=== PATIENT | male | born 1960 | race Caucasian/White ===

== ENCOUNTER 2020-11-26 11:28 | Emergency (ER) | payer OTHER, MEDICARE ==
[~2020-11-26] VITALS: Ht 182.9 cm; Wt 75.0 kg
[~2020-11-26 11:28] MED LIST: ONDA8TAB9 PO
[2020-11-26 12:08] LABS: BASOPHILS % (AUTO) 0.5 % (0-1); EOSINOPHILS % (AUTO) 0.3 % (0-6); MONOCYTES # (AUTO) 0.1 X10'3 (0-0.9)
[2020-11-26 12:10] LABS: LYMPHOCYTES % (AUTO) 89.5 % (21-51); MEAN CORPUSCULAR HEMOGLOBIN 29.8 PG (27.0-31.0); MEAN CORPUSCULAR HGB CONC 34.4 g/dL (33.0-36.5); MEAN CORPUSCULAR VOLUME 86.8 FL (78-98); MEAN PLATELET VOLUME 7.6 FL (7.4-10.4); MONOCYTES % (AUTO) 1.4 % (2-12); NEUTROPHILS # (AUTO) 0.7 X10'3 (1.8-7.7); NEUTROPHILS % (AUTO) 8.3 % (42-75); RED BLOOD COUNT 2.32 X10'6 (4.70-6.10); RED CELL DISTRIBUTION WIDTH 13.5 % (11.5-14.5); WHITE BLOOD COUNT 8.9 X10'3 (4.5-11.0)
[2020-11-26 12:30] LABS: ALANINE AMINOTRANSFERASE 24 U/L (12-78); ALBUMIN 3.6 G/DL (3.4-5.0); ALBUMIN/GLOBULIN RATIO 1.1 (1.1-1.5); ALKALINE PHOSPHATASE 159 IU/L (46-116); ANION GAP 10 (8-16); ASPARTATE AMINO TRANSFERASE 21 U/L (10-37); BILIRUBIN,TOTAL 0.3 MG/DL (0.1-1.0); BLOOD UREA NITROGEN 9 MG/DL (7-18); BUN/CREATININE RATIO 10.2 (5.4-32.0); CALCIUM 8.1 MG/DL (8.5-10.1); CHLORIDE 108 MMOL/L (99-107); CREATININE 0.88 MG/DL (0.60-1.10); GLUCOSE 131 MG/DL (70-104); POTASSIUM 4.7 MMOL/L (3.5-5.1); SODIUM 144 MMOL/L (135-145); TOTAL PROTEIN 6.8 G/DL (6.4-8.2); eGFR 88 ML/MIN
[2020-11-26 12:33] LABS: HEMATOCRIT 20.1 % (42.0-52.0); HEMOGLOBIN 6.9 g/dl (14.0-17.9)
[2020-11-26 12:34] LABS: PLATELET COUNT 8 X10'3 (140-440)
[2020-11-26 12:52] LABS: MYELOCYTES % (MANUAL) 0 % (0-0); TOTAL CELLS COUNTED 100
[2020-11-26 13:03] LABS: PLATELET ESTIMATE DECREASED
[2020-11-26 13:05] LABS: ELLIPTOCYTES 1+; TEAR DROP CELLS 1+
[2020-11-26 14:22] LABS: PARTIAL THROMBOPLASTIN TIME 24 SECONDS (22-32)
--- NOTE | 2020-11-26 16:17 | NUR ---
[facility] STARTED 15MIN VSS. PT BOB WELL
[2020-11-26 17:11] VITALS: BP 108/73
[2020-11-26] MEDS ORDERED: HYDROcodone/acetaminophen 10/325mg tab PO PRN (17:15)
--- NOTE | 2020-11-26 17:22 | NUR ---
[facility] DECLINES NO BEDS
[2020-11-26] MEDS ORDERED: GABA300C PO (18:21)
[2020-11-26] MEDS ORDERED: ROPI1TAB6 PO (18:21)
[2020-11-26] MEDS ORDERED: ESOM20CA23 PO (18:21)
[2020-11-26] MEDS ORDERED: HYDR-3972 PO (18:21)
[2020-11-26 20:57] VITALS: BP 103/67
[2020-11-26 21:23] VITALS: BP 108/64
[2020-11-26] MEDS ORDERED: ROPINIRole 1mg tablet PO SCH (21:45)
[2020-11-26] MEDS ORDERED: gabapentin 300mg capsule PO SCH (21:45)
[2020-11-26] MEDS ORDERED: gabapentin 300mg capsule PO ONE (21:45)
[2020-11-26] MEDS ORDERED: ROPINIRole 1mg tablet PO ONE (21:45)
[2020-11-26 21:59] VITALS: BP 99/66
[2020-11-26 22:26] VITALS: BP 119/82
--- NOTE | 2020-11-26 22:30 | NUR ---
UNIT OF [facility] COMPLETED. TRANSPORT TEAM HERE TO TAKE PATIENT TO [facility].
[2020-11-26 22:32] LABS: BASOPHILS % (AUTO) 0.5 % (0-1); EOSINOPHILS % (AUTO) 0.5 % (0-6); LYMPHOCYTES # (AUTO) 4.5 X10'3 (1.1-4.8); LYMPHOCYTES % (AUTO) 87.9 % (21-51); MEAN CORPUSCULAR HEMOGLOBIN 30.4 PG (27.0-31.0); MEAN CORPUSCULAR HGB CONC 34.3 g/dL (33.0-36.5); MEAN CORPUSCULAR VOLUME 88.6 FL (78-98); MEAN PLATELET VOLUME 8.6 FL (7.4-10.4); MONOCYTES % (AUTO) 0.8 % (2-12); NEUTROPHILS # (AUTO) 0.5 X10'3 (1.8-7.7); NEUTROPHILS % (AUTO) 10.3 % (42-75); RED BLOOD COUNT 2.26 X10'6 (4.70-6.10); RED CELL DISTRIBUTION WIDTH 15.4 % (11.5-14.5); WHITE BLOOD COUNT 5.1 X10'3 (4.5-11.0)
[2020-11-26 22:38] LABS: HEMOGLOBIN 6.9 g/dl (14.0-17.9)
[2020-11-26 22:39] LABS: PLATELET COUNT 31 X10'3 (140-440)
--- NOTE | 2020-11-26 22:49 | NUR ---
REPORT CALLED TO [facility]. SPOKE WITH SHIRLEY CROWE RN AND GAVE PATIENT REPORT. FACILITY IS AWARE THAT TRANSPORT IS ON THE WAY TO [place].
== END 2020-11-26 23:24 | disposition short-term general hospital (02) ==
LOC: ER 11:29
DX: C95.90 Leukemia, unspecified not having achieved remission (principal); Z20.822 Contact with and (suspected) exposure to COVID-19; D64.9 Anemia, unspecified; D69.6 Thrombocytopenia, unspecified; R06.02 Shortness of breath; R53.83 Other fatigue; Z79.899 Other long term (current) drug therapy
CPT/HCPCS: 36415; 36430; 71045; 80053; 83880; 84484; 85007; 85025; 85610; 85730; 86885; 86900; 86901; 86920; 87635; 93005; 99291; C9803; P9016; P9035; 88184; 88185

== ENCOUNTER 2022-05-25 09:53 | Outpatient (CLI) | payer OTHER ==
[~2022-05-25 09:53] MED LIST changes: +ATI1T PO; +DASA50TA PO; +GABA300C PO; +HYDR-3972 PO; -ONDA8TAB9 PO; +PENI-88 PO; +ROPI1TAB6 PO; +SULF1TAB48 PO
[2022-05-25 10:33] LABS: BASOPHILS % (AUTO) 0.2 % (0-1); EOSINOPHILS # (AUTO) 0.1 X10'3 (0-0.9); HEMATOCRIT 33.3 % (42.0-52.0); HEMOGLOBIN 11.2 g/dl (14.0-17.9); LYMPHOCYTES # (AUTO) 2.8 X10'3 (1.1-4.8); LYMPHOCYTES % (AUTO) 53.9 % (21-51); MEAN CORPUSCULAR HEMOGLOBIN 32.9 PG (27.0-31.0); MEAN CORPUSCULAR HGB CONC 33.5 g/dL (33.0-36.5); MEAN CORPUSCULAR VOLUME 98.4 FL (78-98); MEAN PLATELET VOLUME 6.2 FL (7.4-10.4); MONOCYTES # (AUTO) 0.6 X10'3 (0-0.9); MONOCYTES % (AUTO) 11.3 % (2-12); NEUTROPHILS # (AUTO) 1.8 X10'3 (1.8-7.7); NEUTROPHILS % (AUTO) 33.6 % (42-75); PLATELET COUNT 94 X10'3 (140-440); RED BLOOD COUNT 3.39 X10'6 (4.70-6.10); RED CELL DISTRIBUTION WIDTH 14.3 % (11.5-14.5); WHITE BLOOD COUNT 5.2 X10'3 (4.5-11.0)
[2022-05-25 10:44] LABS: ALANINE AMINOTRANSFERASE 31 U/L (12-78); ALBUMIN 3.9 G/DL (3.4-5.0); ALBUMIN/GLOBULIN RATIO 2.1 (1.1-1.5); ALKALINE PHOSPHATASE 121 IU/L (46-116); ANION GAP 6 (8-16); ASPARTATE AMINO TRANSFERASE 24 U/L (10-37); BILIRUBIN,TOTAL 0.3 MG/DL (0.1-1.0); BLOOD UREA NITROGEN 12 MG/DL (7-18); BUN/CREATININE RATIO 12.9 (5.4-32.0); CALCIUM 8.4 MG/DL (8.5-10.1); CHLORIDE 109 MMOL/L (99-107); CREATININE 0.93 MG/DL (0.60-1.10); GLUCOSE 108 MG/DL (70-104); POTASSIUM 4.4 MMOL/L (3.5-5.1); SODIUM 141 MMOL/L (135-145); TOTAL CARBON DIOXIDE 26.5 MMOL/L (24-32); TOTAL PROTEIN 5.8 G/DL (6.4-8.2); eGFR 83 ML/MIN
[2022-05-25] MEDS ORDERED: IODIXANOL 320 MG/ML INFUS..BTL 100ML IV ONE (11:11)
[2022-05-25 12:20] LABS: TOTAL CELLS COUNTED 100
[2022-05-25 12:21] LABS: PLATELET ESTIMATE DECREASED
== END 2022-05-25 23:59 | disposition home or self-care (01) ==
LOC: RAD 09:53
PROVIDERS: ATTEND Internal Medicine Cardiovascular Disease
DX: Z01.818 Encounter for other preprocedural examination (principal); J98.11 Atelectasis; R91.1 Solitary pulmonary nodule; K44.9 Diaphragmatic hernia without obstruction or gangrene; K76.0 Fatty (change of) liver, not elsewhere classified; N40.0 Benign prostatic hyperplasia without lower urinary tract symptoms; Z98.1 Arthrodesis status; I70.0 Atherosclerosis of aorta; I25.10 Atherosclerotic heart disease of native coronary artery without angina pectoris; M47.815 Spondylosis without myelopathy or radiculopathy, thoracolumbar region; I35.0 Nonrheumatic aortic (valve) stenosis; I65.29 Occlusion and stenosis of unspecified carotid artery; Z96.641 Presence of right artificial hip joint; Z79.899 Other long term (current) drug therapy; Z87.891 Personal history of nicotine dependence
CPT/HCPCS: 71046; 71275; 74174; 80053; 85007; 85025; 94010; 94727; 94729; J3490; Q9967

== ENCOUNTER 2022-11-29 10:13 | Outpatient (CLI) | payer OTHER ==
[~2022-11-29 10:13] MED LIST changes: +ASPI-109 PO; +ASPI81TA53 PO; -ATI1T PO; +CHOL100025 PO; +CLON-527 PO; +GING550C4 PO; -HYDR-3972 PO; +IBUP-1985 PO; +NAPR-1170 PO; +ONDA-103 PO; +OXYC-150 PO; -PENI-88 PO; +ROPI1TAB47 PO; -ROPI1TAB6 PO; -SULF1TAB48 PO; +SULF1TAB49 PO
== END 2022-11-29 23:59 | disposition home or self-care (01) ==
LOC: RAD 10:13
PROVIDERS: ATTEND Nurse Practitioner Family
DX: R91.1 Solitary pulmonary nodule (principal); C91.00 Acute lymphoblastic leukemia not having achieved remission; D70.1 Agranulocytosis secondary to cancer chemotherapy; D64.9 Anemia, unspecified; G89.29 Other chronic pain
CPT/HCPCS: 71250